=== PATIENT | female | born 1995 | race African-American/Black ===

== ENCOUNTER 2017-04-14 19:00 | Emergency (ER) | payer SELFPAY ==
--- NOTE | 2017-04-14 19:05 | ED Physician Documentation ---
General Adult - HISTORIAN Historian: patient - HPI Stated Complaint: palpatations Chief Complaint: Palpitations Onset: hours (1) Timing: still present, pain intermittent Severity: mild Further Comments: yes (She states that she was sitting without incident and she felt warm and she was then nervous and felt her heart racing. She has no chest pain. She denies shortness of air. She has had a headache since she started this feeling. She states she did "get it together" and she drove out here with no issues. Now in room she feels the warm feeling again and she feels scared. Denies shortness of breath.) Last known Well Code/Unknown Code: Unknown - ROS CONST: no problems EYES/ENT: denies: problems with vision, nasal drainage CVS/RESP: denies: chest pain, shortness of breath, cough GI/: denies: abdominal pain, vomiting, nausea MS/SKIN/LYMPH: none NEURO/PSYCH: headache, dizziness. denies: difficulty with speech - PAST HX Past History: none Other History: none Surgeries/Procedures: none Immunizations: UTD - SOCIAL HX Smoking History: non-smoker Alcohol Use: none Drug Use: none - FAMILY HX Family History: Yes (Mom of blood clot ) - REVIEWED ASSESSMENTS Nursing Assessment Reviewed: Yes Vitals Reviewed: Yes Progress - Progress Progress: 2035: she states she is feeling more calm. DG ED Results Lab/Radiology - Radiology Radiology Impressions: 2205: states she has no symptoms at this time. Denies any shortness of breath. No nausea. She does feel more "tired" DG General Adult Physical Exam - PHYSICAL EXAM GENERAL APPEARANCE: moderate distress (crying) EENT: eye inspection normal, DONAVON NECK: normal inspection, thyroid normal RESPIRATORY: no resp distress, chest non-tender, breath sounds normal CVS: reg rate & rhythm, heart sounds normal, equal pulses, no murmur ABDOMEN: soft, no distension, non-tender SKIN: warm/dry, normal color EXTREMITIES: non-tender, normal range of motion, no evidence of injury, no edema NEURO: oriented X3, CN's nml as tested, motor nml, sensation nml Discharge Clincal Impression: Palpitations, Anxiety Referrals: Primary Doctor,No [Primary Care Provider] - 2 Days Comments: Follow up with PCP In am for possible work up on palpitations Increase fluids Rest Xanax 0.5 mg every 12 hours as needed for anxiety Return to ER for any concerns Condition: Stable Disposition: 01 HOME, SELF-CARE Decision to Admit: NO Date of Decison to Admit: 04/14/17 Decision Time: 22:14
[2017-04-14] MEDS ORDERED: 0.9 % SODIUM CHLORIDE 1,000 ML IV ONE (19:33)
[2017-04-14] MEDS ORDERED: LORazepam 2 MG/ML VIAL IVP ONE (19:48)
[2017-04-14 19:55] LABS: BASOPHILS % 0.5 (0.0-1.5); EOSINOPHILS % 1.6 % (0.0-6.8); NEUTROPHILS # 2.5 # k/uL (1.4-7.7)
[2017-04-14 21:28] LABS: eGFR (African) > 60; eGFR (Non-African) > 60
[2017-04-14] MEDS ORDERED: ONDANSETRON HCL/PF 4 MG/ 2ML VIAL IVP ONE (21:33)
[2017-04-14] MEDS ORDERED: ONDANSETRON HCL/PF 4 MG/ 2ML VIAL ONE (21:34)
[2017-04-14 22:46] VITALS: BP 117/80
[2017-04-15 06:39] LABS: CANNABINOIDS NEGATIVE ng/mL (< 50); METHYLENEDIOXYMETHAMPHETAMINE NEGATIVE ng/mL (<500)
== END 2017-04-14 22:10 | disposition home or self-care (01) ==
LOC: ED 19:00
DX: R00.2 Palpitations (principal); F41.9 Anxiety disorder, unspecified
CPT/HCPCS: 80053; 80377; 84703; 85025; 85379; 93005; J2060; J2405; J7030; 96365; 96375; 99283; G0481; S1016

== ENCOUNTER 2017-04-29 20:10 | Emergency (ER) | payer SELFPAY ==
--- NOTE | 2017-04-29 20:18 | ED Physician Documentation ---
Chest Pain - HISTORIAN Historian: patient - HPI Stated Complaint: chest tightness Chief Complaint: General Adult Onset: other (this has been on and off for over a month . She states started with tonight about one hour ago . Usually happens before bed ) Timing: sudden onset Duration: none, waxing, waning Last known Well Date: 04/29/17 Last Known Well Time: 08:00 Last known Well Code/Unknown Code: Unknown Context: sleep Severity: mild Quality: tightness, burning Chest Pain Radiation: arms Chest Pain Signs/Symptoms: dizziness. denies: nausea, vomiting, diaphoresis Worsened By: movement. denies: deep breaths Relieved By: other (she does have xanax at home but she did not try this med tonight. She states the xanax usually does help her chest tightness ) - ROS CONST: none MS/LYMPH: none GI/: none EYES/ENT: none SKIN/ENDO: none NEURO/PSYCH: none - PAST HX TN risk factors: no pertinent history DVT/PE Risk Factors: other (her mom from a blood clot ) TAD/AAA risk factors: none Neuro deficit: none GI disease: none Lung disease: none Surgeries/Procedures: none Immunizations: UTD Allergies/Adverse Reactions: Allergies Allergy/AdvReac Type Severity Reaction Status Date / Time No Known Allergies Allergy Verified 04/29/17 20:32 Home Medications: Ambulatory Orders Medication Instructions Recorded Alprazolam [Xanax] 0.25 mg PO Q12H PRN 04/29/17 - SOCIAL HX Smoking History: non-smoker Alcohol Use: none Drug Use: none - FAMILY HX Family HX: other (blood clot she is not sure what kind ) - VITAL SIGNS Vital Signs: Vital Signs Temp Pulse Resp BP Pulse Ox 117/80 04/14/17 22:10 - REVIEWED ASSESSMENTS Nursing Assessment Reviewed: Yes Vitals Reviewed: Yes Progress - Progress Progress: 2100: reports pain is resolved. She denies drowsiness. DG Chest Pain Physical Exam - EXAM General Appearance: no acute distress, alert EENT: eye inspection normal, DONAVON Neck: nml inspection. No: JVD present Respiratory: no resp. distress, chest non-tender, nml breath sounds CVS: reg. rate & rhythm, no murmur, no gallop Abdomen: soft, normal bowel sounds, no distension, non-tender Skin: warm/dry, normal color Extremities: non-tender, normal range of motion, no evidence of injury, no edema Neuro: oriented X3, CN's nml as tested, motor nml, sensation nml, mood/affect nml Discharge Clincal Impression: Anxiety Referrals: Primary Doctor,No [Primary Care Provider] - 2 Days Comments: 1. follow up with PCP for work up 2. return to ER for any further concerns 3. Take xanax as needed Condition: Stable Disposition: 01 HOME, SELF-CARE Decision to Admit: NO Date of Decison to Admit: 04/29/17 Decision Time: 21:26
[2017-04-29] MEDS: ALPRAZOLAM 0.5 MG TABLET PO ONE (20:37)
[2017-04-29 21:57] VITALS: BP 105/63
== END 2017-04-29 21:43 | disposition home or self-care (01) ==
LOC: ED 20:10
DX: F41.9 Anxiety disorder, unspecified (principal)
CPT/HCPCS: 99282; 99283